=== PATIENT | female | born 1975 | race Two or more races ===

== ENCOUNTER 2017-07-20 17:14 | Inpatient (IN) | payer OTHER ==
[~2017-07-20] VITALS: Ht 165.1 cm; Wt 83.9 kg
--- NOTE | 2017-07-20 19:10 | NUR ---
Dr Montes at the bedside for MSE.
[2017-07-20] MEDS ORDERED: BENZONATATE 100 MG CAPSULE PO ONE (19:30)
[2017-07-20] MEDS ORDERED: ALBUTEROL SULFATE 2.5 MG/3 ML NEBU NEB ONE ×3 (19:30→22:45)
[2017-07-20] MEDS ORDERED: HYDROCODONE BIT/HOMATROPINE 5 ML UDC PO ONE (19:30)
--- NOTE | 2017-07-20 19:30 | NUR ---
rec'd pt in room in no distress, pt aaox4,c/o cough and congestion for 3 days, denies any cp.pt breathing unlabored, with inpirational wheezes in all lobes.abd soft nion distended with + bs, lbm today, wnl per pt. denies any urinary symptoms,bed in lowest position, locked. hob up, sr up x2 for safety, cb within reach will continue with poc
--- NOTE | 2017-07-20 19:38 | NUR ---
RT AT BEDSIDE GIVING BREATHING TX
[2017-07-20] MEDS ORDERED: HYDROCODONE BIT/HOMATROPINE 5 ML UDC ONE (19:49)
[2017-07-20] MEDS ORDERED: BENZONATATE 100 MG CAPSULE ONE (19:49)
[2017-07-20] MEDS ORDERED: ALBUTEROL SULFATE 2.5 MG/3 ML NEBU ONE ×3 (19:55→23:04)
--- NOTE | 2017-07-20 20:15 | NUR ---
RT AT BEDSIDE. PT GETTING 2ND ROUND OF BREATHING TX.
--- NOTE | 2017-07-20 20:54 | NUR ---
CT AT BEDSIDE
--- NOTE | 2017-07-20 21:02 | NUR ---
WEEZING AND RHONCHI STILL AUSCULTATED BILATERALLY; HOWEVER, PT REPORTS "FEELING BETTER."
[2017-07-20] MEDS ORDERED: IPRATROPIUM BROMIDE 0.5 MG/2.5 ML NEBU NEB ONE (22:45)
[2017-07-20 22:52] LABS: BASOPHILS % (AUTO) 1.1 % (0.0-2.0); EOSINOPHILS # (AUTO) 0.2 K/uL (0.0-0.7); EOSINOPHILS % (AUTO) 3.6 % (0.0-7.0); HEMOGLOBIN 12.1 g/dL (10.9-14.3); LYMPHOCYTES # (AUTO) 1.6 K/uL (20.0-40.0); LYMPHOCYTES % (AUTO) 35.6 % (20.5-51.5); MEAN CORPUSCULAR HEMOGLOBIN 28.7 uug (24.7-32.8); MEAN CORPUSCULAR HGB CONC 34 g/dL (32.3-35.6); MEAN CORPUSCULAR VOLUME 85.1 fL (75.5-95.3); MONOCYTES # (AUTO) 0.6 K/uL (2.0-10.0); MONOCYTES % (AUTO) 12.7 % (0.0-11.0); NEUTROPHILS # (AUTO) 2.1 K/uL (1.8-8.9); PLATELET COUNT (AUTO) 247 K/uL (179-408); RED BLOOD CELL COUNT(AUTO) 4.23 MIL/uL (3.63-4.92); WHITE BLOOD COUNT (AUTO) 4.4 K/uL (3.8-11.8)
--- NOTE | 2017-07-20 22:59 | NUR ---
PT RECEIVING 3RD ROUND OF BREATHING TX.
[2017-07-20] MEDS ORDERED: IPRATROPIUM BROMIDE 0.5 MG/2.5 ML NEBU ONE (23:04)
[2017-07-20 23:08] LABS: BILIRUBIN,TOTAL 0.2 mg/dL (0.2-1.0); CREATININE 0.8 mg/dL (0.6-1.3); POTASSIUM 3.2 mmol/L (3.5-5.1)
--- NOTE | 2017-07-20 23:15 | NUR ---
PT IN BED RECEIVING BREATHING TX. PT'S BROTHER AT BEDSIDE.
[2017-07-20] MEDS ORDERED: POTASSIUM BICARBONATE/CIT AC 25 MEQ TABLET.EFF PO ONE (23:30)
--- NOTE | 2017-07-20 23:30 | NUR ---
PT IN BED. MD MARINO REASSESSING PT'S BREATHING POST TX
[2017-07-20] MEDS ORDERED: AZITHROMYCIN IV 500 MG in IV DEXTROSE 5% 250 ML IV ONE (23:45)
[2017-07-20] MEDS ORDERED: POTASSIUM BICARBONATE/CIT AC 25 MEQ TABLET.EFF ONE (23:55)
[2017-07-21] MEDS ORDERED: AZITHROMYCIN 500 MG VIAL IV ONE (00:08)
--- NOTE | 2017-07-21 00:34 | NUR ---
PT IN BED. PT IS SITTING UP AND EATING SUBWAY. PT'S BROTHER IS AT BEDSIDE.
--- NOTE | 2017-07-21 00:43 | NUR ---
panel call placed per [place] JIMENES
[2017-07-21] MEDS ORDERED: HYDROCODONE/APAP 10-325 MG TABLET PO PRN (01:00)
[2017-07-21] MEDS ORDERED: ONDANSETRON 4 MG/2 ML VIAL IV PRN (01:00)
[2017-07-21] MEDS ORDERED: Z GUARD REMEDY PASTE 57 GM TUBE TOP PRN (01:00)
[2017-07-21] MEDS ORDERED: MAGNESIUM HYDROXIDE 30 ML LIQUID UDC PO PRN (01:00)
[2017-07-21] MEDS ORDERED: ACETAMINOPHEN 325 MG TABLET PO PRN (01:00)
--- NOTE | 2017-07-21 01:05 | NUR ---
GAVE REPORT TO RADHIKA MILLER IN TELEMETRY
--- NOTE | 2017-07-21 01:55 | NUR ---
NEW ADMIT FROM ER, PATIENT IS ALERT AND ORIENTED AND ABLE TO STATE HER NEEDS. C/O OF H/A PRN PAIN MEDS GIVEN ORDERED. NO RESP DISTRESS AT PRESENT, WHEEZES HEARD ON AUSCULTATION, BREATHING TX ADMIN BY RT WITH EFFECT. WILL CONTINUE TO MONITOR PATIENT
[2017-07-21 02:02] VITALS: BP 122/74
[2017-07-21] MEDS: HYDROCODONE/APAP 5-325MG TABLET PO PRN ×2 (02:31→20:30)
[2017-07-21] MEDS ORDERED: ALBUTEROL SULFATE 2.5 MG/ 0.5 ML NEBU ONE (03:33)
[2017-07-21] MEDS ORDERED: IPRATROPIUM BROMIDE 0.5 MG/2.5 ML NEBU ONE (03:34)
[2017-07-21 04:00] VITALS: BP 127/70
[2017-07-21] MEDS ORDERED: ALBUTEROL SULFATE 2.5 MG/ 0.5 ML NEBU NEB SCH (06:00)
[2017-07-21] MEDS ORDERED: IPRATROPIUM BROMIDE 0.5 MG/2.5 ML NEBU NEB SCH (06:00)
--- NOTE | 2017-07-21 06:43 | NUR ---
PATIENT SLEPT WELL THROUGH THE NIGHT, NO SIGNIFICANT CHANGES IN STATUS AT PRESENT. PATIENT IS RESTING COMFORTABLY.
[2017-07-21 10:59] LABS: *URINE HCG, QUAL NEGATIVE (NEGATIVE)
[2017-07-21 12:20] VITALS: BP 122/74
[2017-07-21] MEDS: methylPREDNISolone SOD SUCC 40 MG/ML VIAL IV SCH ×3 (13:18→21:35)
[2017-07-21] MEDS: ALBUTEROL SULFATE 2.5 MG/ 0.5 ML NEBU NEB SCH ×2 (13:44→19:06)
[2017-07-21] MEDS: IPRATROPIUM BROMIDE 0.5 MG/2.5 ML NEBU NEB SCH ×2 (13:45→19:06)
[2017-07-21] MEDS ORDERED: POTASSIUM CHLORIDE 20 MEQ TAB.PRT.SR PO ONE (14:21)
[2017-07-21 16:00] VITALS: BP 115/76
[2017-07-21 20:00] VITALS: BP 126/73
--- NOTE | 2017-07-21 20:30 | NUR ---
RECEIVED IN BED ALERT ORIENTED, NO SOB NO CHEST PAIN NOTED, PATIENT STILL HAS NON PRODUCTIVE COUGH, CONT ON PAIN MANAGEMENT, FAMILY AT BEDSIDE.
--- NOTE | 2017-07-21 22:30 | NUR ---
PATIENT HAS INTENSE COUGH, AND REQUESTING COUGH MEDICATIONS, NOTIFY DR. RAGSDALE WITH NO NEW ORDER, CONT HHN TX. ORDER, CONT TO MONITOR.
[2017-07-21] MEDS ORDERED: AZITHROMYCIN IV 500 MG in IV DEXTROSE 5% 250 ML IV SCH (23:00)
[2017-07-22] MEDS: ALBUTEROL SULFATE 2.5 MG/ 0.5 ML NEBU NEB SCH ×2 (00:39→07:55)
[2017-07-22] MEDS: IPRATROPIUM BROMIDE 0.5 MG/2.5 ML NEBU NEB SCH ×2 (00:39→07:55)
[2017-07-22] MEDS: methylPREDNISolone SOD SUCC 40 MG/ML VIAL IV SCH (05:21)
[2017-07-22 06:26] LABS: BASOPHILS % (AUTO) 0.1 % (0.0-2.0); HEMATOCRIT 37.3 % (31.2-41.9); HEMOGLOBIN 12.2 g/dL (10.9-14.3); LYMPHOCYTES # (AUTO) 1.1 K/uL (20.0-40.0); LYMPHOCYTES % (AUTO) 20.7 % (20.5-51.5); MEAN CORPUSCULAR HEMOGLOBIN 27.8 uug (24.7-32.8); MEAN CORPUSCULAR HGB CONC 33 g/dL (32.3-35.6); MEAN CORPUSCULAR VOLUME 85.2 fL (75.5-95.3); MONOCYTES # (AUTO) 0.3 K/uL (2.0-10.0); MONOCYTES % (AUTO) 6.1 % (0.0-11.0); NEUTROPHILS # (AUTO) 3.8 K/uL (1.8-8.9); NEUTROPHILS % (AUTO) 73.1 % (38.5-71.5); PLATELET COUNT (AUTO) 270 K/uL (179-408); RED BLOOD CELL COUNT(AUTO) 4.38 MIL/uL (3.63-4.92); WHITE BLOOD COUNT (AUTO) 5.1 K/uL (3.8-11.8)
[2017-07-22 06:41] LABS: CREATININE 0.7 mg/dL (0.6-1.3); MAGNESIUM 1.7 mg/dL (1.8-2.4); PHOSPHOROUS 2.8 mg/dL (2.5-4.9); POTASSIUM 4.3 mmol/L (3.5-5.1)
--- NOTE | 2017-07-22 06:51 | NUR ---
PATIENT SLEPT MOST OF THE NIGHT, CONT PAIN MANAGEMENT, STILL WITH NO PRODUCTIVE COUGH, CONT HHN TX BY RT. NO S/S OF DISTRESS. CALL LIGHT WITHIN REACH.
[2017-07-22 06:55] LABS: THYROID STIMULATING HORMONE 0.611 mIU/mL (0.358-3.740)
[2017-07-22] MEDS: MAGNESIUM SULFATE/D5W 100 ML IV SCH ×2 (10:11→11:01)
[2017-07-22 11:18] VITALS: BP 116/74
--- NOTE | 2017-07-22 12:30 | NUR ---
d/c orders received noted and carried out.d/c heplock per md orders.d/c instructions and educations given to the pt.pt said she will follow up with her pcp in one week.pt left the facility via private car in stable condition.
== END 2017-07-22 12:30 | disposition home or self-care (01) | DRG 144 ==
LOC: ER 17:16 → TELE 07-21 01:27 → MED 07-21 11:47
PROVIDERS: ADMIT Nurse Practitioner Acute Care; ATTEND Internal Medicine
DX: J20.9 Acute bronchitis, unspecified (principal); E87.6 Hypokalemia; J45.909 Unspecified asthma, uncomplicated; I51.7 Cardiomegaly
CPT/HCPCS: 36415; 71045; 83735; 84100; 84443; 84703; 85025; 94640; 94664; A4663; J0456; J2920; J3475; J3490; J3590; J7030; J7060

== ENCOUNTER 2017-12-16 12:49 | Emergency (ER) | payer OTHER ==
[~2017-12-16] VITALS: Ht 160 cm; Wt 81.2 kg
--- NOTE | 2017-12-16 13:17 | NUR ---
PT WAS EVALUATED BY DR MARTIN. PT WAS D/C TO HOME. D/C INSTRUCTIONS GIVEN TO THE PT.
[2017-12-16 13:21] VITALS: BP 132/79
== END 2017-12-16 13:36 | disposition home or self-care (01) ==
LOC: ER 12:51
DX: J06.9 Acute upper respiratory infection, unspecified (principal); J45.909 Unspecified asthma, uncomplicated
CPT/HCPCS: A4663

== ENCOUNTER 2018-02-03 13:07 | Emergency (ER) | payer OTHER ==
[~2018-02-03] VITALS: Ht 165.1 cm; Wt 72.6 kg
--- NOTE | 2018-02-03 13:40 | NUR ---
MSE COMPLETED, PT D/C'D HIOME, ACI/RX X2 GIVEN. PT AMBULATED W/O DIFF/TOOK ALL BELONGINGS.
[2018-02-03 13:57] VITALS: BP 111/77
== END 2018-02-03 13:40 | disposition home or self-care (01) ==
LOC: ER 13:07
DX: J02.0 Streptococcal pharyngitis (principal); J45.909 Unspecified asthma, uncomplicated
CPT/HCPCS: A4663

== ENCOUNTER 2019-05-22 12:10 | Emergency (ER) | payer OTHER ==
[~2019-05-22] VITALS: Ht 170.2 cm; Wt 81.6 kg
[2019-05-22] MEDS ORDERED: IBUPROFEN 600 MG TABLET PO ONE (12:30)
[2019-05-22] MEDS ORDERED: IBUPROFEN 600 MG TABLET ONE (12:32)
== END 2019-05-22 12:34 | disposition home or self-care (01) ==
LOC: ER 12:14
DX: J11.1 Influenza due to unidentified influenza virus with other respiratory manifestations (principal); J45.909 Unspecified asthma, uncomplicated
CPT/HCPCS: A4663

== ENCOUNTER 2019-07-06 00:42 | Emergency (ER) | payer OTHER ==
[~2019-07-06] VITALS: Ht 165.1 cm; Wt 86.2 kg
[2019-07-06] MEDS ORDERED: ALBUTEROL SULFATE 2.5 MG/3 ML NEBU NEB ONE (01:00)
[2019-07-06] MEDS ORDERED: IPRATROPIUM BROMIDE 0.5 MG/2.5 ML NEBU NEB ONE (01:00)
[2019-07-06] MEDS ORDERED: predniSONE 20 MG TABLET PO ONE (01:00)
[2019-07-06] MEDS ORDERED: predniSONE 10 MG TABLET ONE (01:02)
[2019-07-06] MEDS ORDERED: predniSONE 50 MG TABLET ONE (01:03)
[2019-07-06] MEDS ORDERED: ALBUTEROL SULFATE 2.5 MG/ 0.5 ML NEBU ONE (01:05)
[2019-07-06] MEDS ORDERED: IPRATROPIUM BROMIDE 0.5 MG/2.5 ML NEBU ONE (01:05)
--- NOTE | 2019-07-06 01:32 | NUR ---
pt able to tolerate breathing treatment states significant relief denies pain o2sat at 97% HR at 95
--- NOTE | 2019-07-06 01:33 | NUR ---
Patient discharged to home in stable conditon. Written and verbal after care instructions given. Patient verbalizes understanding of instructions. ambulatory w/ stable gait all belongings w/ pt
[2019-07-06 01:34] VITALS: BP 108/89
== END 2019-07-06 01:34 | disposition home or self-care (01) ==
LOC: ER 00:45
DX: J45.909 Unspecified asthma, uncomplicated (principal)
CPT/HCPCS: 94640; 99283; J7512 ×2; A4663; J3590

== ENCOUNTER 2020-06-28 14:49 | Emergency (ER) | payer OTHER ==
[~2020-06-28] VITALS: Ht 170.2 cm; Wt 85.7 kg
[2020-06-28] MEDS ORDERED: DEXAMETHASONE 4 MG TABLET PO ONE (15:30)
[2020-06-28] MEDS ORDERED: IPRATROPIUM BROMIDE 0.5 MG/2.5 ML NEBU NEB ONE (15:30)
[2020-06-28] MEDS ORDERED: ALBUTEROL SULFATE 2.5 MG/3 ML NEBU NEB ONE (15:30)
[2020-06-28] MEDS ORDERED: DEXAMETHASONE 4 MG TABLET ONE (15:40)
[2020-06-28] MEDS ORDERED: IPRATROPIUM BROMIDE 0.5 MG/2.5 ML NEBU ONE (15:58)
[2020-06-28] MEDS ORDERED: ALBUTEROL SULFATE 2.5 MG/3 ML NEBU ONE (15:58)
[2020-06-28] MEDS ORDERED: ALBU8.5H8 INH (16:05)
[2020-06-28] MEDS ORDERED: METH4TAB3 PO (16:05)
--- NOTE | 2020-06-28 16:45 | NUR ---
Patient discharged to home in stable condition. Written and verbal after care instructions given. Patient verbalizes understanding of instructions. Stressed follow up or return to ER for worsening s/s.pt says feels better, breathing normally, no sob.
[2020-06-28 16:46] VITALS: BP 119/51
== END 2020-06-28 16:47 | disposition home or self-care (01) ==
LOC: ER 14:49
DX: J45.909 Unspecified asthma, uncomplicated (principal); Z20.822 Contact with and (suspected) exposure to COVID-19
CPT/HCPCS: 71045; 87426; 94640; 99284; J8540; A4663; J3590

== ENCOUNTER 2020-08-10 22:59 | Emergency (ER) | payer OTHER ==
[~2020-08-10] VITALS: Ht 170.2 cm; Wt 81.6 kg
[~2020-08-10 22:59] MED LIST: ALBU8.5H8 INH; METH4TAB3 PO
[2020-08-10] MEDS ORDERED: methylPREDNISolone SOD SUCC 125 MG/2 ML VIAL IV ONE (23:15)
[2020-08-10] MEDS ORDERED: IPRATROPIUM BROMIDE 0.5 MG/2.5 ML NEBU NEB ONE (23:15)
[2020-08-10] MEDS ORDERED: IV NORMAL SALINE 1000 ML BAG IV ONE (23:15)
[2020-08-10] MEDS ORDERED: TERBUTALINE SULFATE 1 MG/1 ML VIAL SQ ONE (23:15)
[2020-08-10] MEDS ORDERED: ALBUTEROL SULFATE 2.5 MG/3 ML NEBU NEB ONE (23:15)
[2020-08-10] MEDS ORDERED: MAGNESIUM SULFATE 2 GM in IV DEXTROSE 5% 100 ML IV ONE (23:15)
[2020-08-10] MEDS ORDERED: ALBUTEROL SULFATE 2.5 MG/ 0.5 ML NEBU ONE (23:23)
[2020-08-10] MEDS ORDERED: IPRATROPIUM BROMIDE 0.5 MG/2.5 ML NEBU ONE (23:23)
[2020-08-10] MEDS ORDERED: TERBUTALINE SULFATE 1 MG/1 ML VIAL ONE (23:50)
[2020-08-10] MEDS ORDERED: methylPREDNISolone SOD SUCC 125 MG/2 ML VIAL ONE (23:50)
[2020-08-10] MEDS ORDERED: MAGNESIUM SULFATE/D5W 200 ML ONE (23:51)
--- NOTE | 2020-08-11 00:06 | NUR ---
Patient ambulatory to rm3,complaint short of breath this evening not resolving speech in clear short sentences,dry cough,moist membranes HOB up, Patient decline gown.RFA # 22 angio NS IVF as directed.
[2020-08-11] MEDS ORDERED: PRED50TA PO (00:11)
[2020-08-11] MEDS ORDERED: ALBU8.5H8 INH (00:11)
[2020-08-11 01:30] VITALS: BP 122/70
== END 2020-08-11 01:31 | disposition home or self-care (01) ==
LOC: ER 23:01
DX: J45.901 Unspecified asthma with (acute) exacerbation (principal)
CPT/HCPCS: 71045; 93005; 94640; 96365; 96366; 96372; 96375; 99285; J2930; J3105; J3475; J3590

== ENCOUNTER 2020-10-05 16:46 | Emergency (ER) | payer OTHER ==
[~2020-10-05] VITALS: Ht 170.2 cm; Wt 81.6 kg
[~2020-10-05 16:46] MED LIST changes: +PRED50TA PO
[2020-10-05] MEDS ORDERED: AZIT250T PO (17:10)
[2020-10-05] MEDS ORDERED: ACETAMINOPHEN 325 MG TABLET PO ONE (17:15)
[2020-10-05] MEDS ORDERED: AZITHROMYCIN 250 MG TABLET PO ONE (17:15)
[2020-10-05] MEDS ORDERED: AZITHROMYCIN 250 MG TABLET ONE (17:20)
[2020-10-05] MEDS ORDERED: ACETAMINOPHEN ES 500 MG TABLET ONE (17:20)
--- NOTE | 2020-10-05 17:26 | NUR ---
Gave pt RX and d/c instructions, pt verbalized understanding.
[2020-10-06] MEDS ORDERED: ACET-2154 PO (03:30)
== END 2020-10-05 17:27 | disposition home or self-care (01) ==
LOC: ER 16:48
DX: J02.9 Acute pharyngitis, unspecified (principal); J45.909 Unspecified asthma, uncomplicated
CPT/HCPCS: A4663; A9150; Q0144

== ENCOUNTER 2020-10-06 02:18 | Emergency (ER) | payer OTHER ==
[~2020-10-06] VITALS: Ht 170.2 cm; Wt 81.6 kg
[~2020-10-06 02:18] MED LIST changes: +AZIT250T PO
[2020-10-06] MEDS ORDERED: KETOROLAC TROMETHAMINE 30 MG INJ ONE (02:59)
[2020-10-06] MEDS ORDERED: ACETAMINOPHEN 325 MG TABLET ONE ×2 (02:59→03:00)
[2020-10-06] MEDS ORDERED: ACETAMINOPHEN 325 MG TABLET PO ONE (03:00)
[2020-10-06] MEDS ORDERED: KETOROLAC TROMETHAMINE 30 MG INJ IM ONE (03:00)
[2020-10-06] MEDS ORDERED: ACET-2154 PO (03:30)
[2020-10-06] MEDS ORDERED: ONDANSETRON ODT 4 MG TAB.RAPDIS SL ONE (03:45)
--- NOTE | 2020-10-06 03:51 | NUR ---
Patient discharged to home in stable condition. Written and verbal after care instructions given. Patient verbalizes understanding of instructions. Stressed follow up or return to ER for worsening s/s. Patient out of ER with steady gait, no acute signs of distress, VSS, all belongings taken. Provided with lab results.
[2020-10-06 03:52] VITALS: BP 135/70
[2020-10-06] MEDS ORDERED: ONDANSETRON ODT 4 MG TAB.RAPDIS ONE (03:53)
== END 2020-10-06 03:52 | disposition home or self-care (01) ==
LOC: ER 02:19
DX: J02.0 Streptococcal pharyngitis (principal); B95.0 Streptococcus, group A, as the cause of diseases classified elsewhere; M79.10 Myalgia, unspecified site; Z20.822 Contact with and (suspected) exposure to COVID-19; J45.909 Unspecified asthma, uncomplicated
CPT/HCPCS: 86403; 87426; 96372; 99283; J1885; A4663; Q0162

== ENCOUNTER 2020-12-05 10:22 | Emergency (ER) | payer OTHER ==
[~2020-12-05] VITALS: Ht 170.2 cm; Wt 81.6 kg
[~2020-12-05 10:22] MED LIST changes: +ACET-2154 PO
--- NOTE | 2020-12-05 11:13 | NUR ---
Gave pt d/c instructions, pt verbalized understanding.
== END 2020-12-05 11:15 | disposition home or self-care (01) ==
LOC: ER 10:22
DX: J06.9 Acute upper respiratory infection, unspecified (principal); J45.909 Unspecified asthma, uncomplicated
CPT/HCPCS: 86403; 87070; A4663

== ENCOUNTER 2021-01-31 09:30 | Emergency (ER) | payer OTHER ==
[~2021-01-31] VITALS: Ht 170.2 cm; Wt 90.7 kg
--- NOTE | 2021-01-31 09:53 | NUR ---
at bedside for assessment
[2021-01-31] MEDS ORDERED: GLUCAGON,HUMAN RECOMBINANT 1 MG VIAL IVP ONE (10:00)
[2021-01-31] MEDS ORDERED: GLUCAGON,HUMAN RECOMBINANT 1 MG VIAL ONE (10:14)
--- NOTE | 2021-01-31 10:23 | NUR ---
Patient taken to radiology department for x-ray of the neck, patient states she swallowed a fish bone and it got caught in her throat
--- NOTE | 2021-01-31 11:20 | NUR ---
Called Dr.Marc Browne's office (ENT) as requested by . Spoke with Rita who stated the patient will need to get authorization from her insurance before they can see her.
--- NOTE | 2021-01-31 11:58 | NUR ---
Patient's medical office contacted to get a a referral for ENT, Medical office informed me that in 72 hours the patient will get a call from one of their nurses to schedule an appointment. Patient offered to be transferred to a hospital with an ENT on staff. Patient opted to drive to [facility] on her own. Patient discharged to home in stable condition. No signs of acute distress noted. Written and verbal after care instructions given. Patient verbalizes understanding of instructions. Stressed follow up or return to ER for worsening s/s.
[2021-01-31 12:08] VITALS: BP 126/86
== END 2021-01-31 12:00 | disposition home or self-care (01) ==
LOC: ER 09:31
DX: T18.108A Unspecified foreign body in esophagus causing other injury, initial encounter (principal); X58.XXXA Exposure to other specified factors, initial encounter; Y92.89 Other specified places as the place of occurrence of the external cause; J45.909 Unspecified asthma, uncomplicated; Z79.899 Other long term (current) drug therapy
CPT/HCPCS: 70360; 96374; 99284; J1610; A4663

== ENCOUNTER 2021-06-21 21:01 | Emergency (ER) | payer OTHER ==
[~2021-06-21] VITALS: Ht 170.2 cm; Wt 86.2 kg
[2021-06-22] MEDS ORDERED: MAG HYDROX/AL HYDROX/SIMETH 30 ML LIQUID UDC PO ONE
[2021-06-22] MEDS ORDERED: ALBUTEROL SULFATE 2.5 MG/3 ML NEBU NEB ONE
[2021-06-22] MEDS ORDERED: predniSONE 20 MG TABLET PO ONE
[2021-06-22] MEDS ORDERED: ALBUTEROL SULFATE 2.5 MG/3 ML NEBU ONE (00:17)
[2021-06-22] MEDS ORDERED: PRED50TA PO (00:20)
[2021-06-22] MEDS ORDERED: GUAI5SYR4 PO (00:20)
[2021-06-22] MEDS ORDERED: FLUT1DIS28 INH (00:20)
[2021-06-22] MEDS ORDERED: ALBU6.7H9 INH (00:20)
--- NOTE | 2021-06-22 00:27 | NUR ---
A/O x3 HOB up complaint dry cough x 4 day. ED MD bedside. Resp TX ordered. Resp Tech bedside for TX. Patient states normal void, BM,.Able to hydrate well, moist membranes, clear speech. Comfort measure x 1.
[2021-06-22] MEDS ORDERED: predniSONE 20 MG TABLET ONE (00:43)
[2021-06-22] MEDS ORDERED: MAGNESIUM HYDROXIDE 30 ML LIQUID UDC ONE (00:56)
--- NOTE | 2021-06-22 01:19 | NUR ---
ED MD with patient states feeling better ready to go home, reviewed written After Visit instructions patient able to verbalize instructions RX given. All questions answered.
[2021-06-22 01:22] VITALS: BP 122/78
== END 2021-06-22 01:00 | disposition home or self-care (01) ==
LOC: ER 21:03
DX: J45.901 Unspecified asthma with (acute) exacerbation (principal)
CPT/HCPCS: 94644; 99285; J7512; A4663

== ENCOUNTER 2021-07-02 23:49 | Emergency (ER) | payer OTHER ==
[~2021-07-02] VITALS: Ht 170.2 cm; Wt 86.2 kg
[~2021-07-02 23:49] MED LIST changes: +ALBU6.7H9 INH; +FLUT1DIS28 INH; +GUAI5SYR4 PO
[2021-07-03] MEDS ORDERED: predniSONE 20 MG TABLET PO ONE (00:15)
[2021-07-03] MEDS ORDERED: MAG HYDROX/AL HYDROX/SIMETH 30 ML LIQUID UDC PO ONE (00:15)
[2021-07-03] MEDS ORDERED: IPRATROPIUM BROMIDE 0.5 MG/2.5 ML NEBU NEB ONE (00:15)
[2021-07-03] MEDS ORDERED: ALBUTEROL SULFATE 2.5 MG/3 ML NEBU NEB ONE (00:15)
[2021-07-03] MEDS ORDERED: MAG HYDROX/AL HYDROX/SIMETH 30 ML LIQUID UDC ONE (00:24)
[2021-07-03] MEDS ORDERED: predniSONE 50 MG TABLET ONE (00:25)
[2021-07-03] MEDS ORDERED: predniSONE 10 MG TABLET ONE (00:25)
[2021-07-03] MEDS ORDERED: IPRATROPIUM BROMIDE 0.5 MG/2.5 ML NEBU ONE (00:28)
[2021-07-03] MEDS ORDERED: ALBUTEROL SULFATE 2.5 MG/ 0.5 ML NEBU ONE (00:28)
[2021-07-03] MEDS ORDERED: predniSONE 20 MG TABLET ONE (00:50)
[2021-07-03] MEDS ORDERED: MAGNESIUM HYDROXIDE 30 ML LIQUID UDC ONE (00:51)
--- NOTE | 2021-07-03 01:25 | NUR ---
PATIENT STATES "I FEEL BETTER AFTER THE BREATHING TX."
[2021-07-03] MEDS ORDERED: PRED20TA PO (01:41)
[2021-07-03] MEDS ORDERED: FLUT1DIS28 INH (01:41)
[2021-07-03] MEDS ORDERED: ALBU6.7H9 INH (01:41)
[2021-07-03 01:49] VITALS: BP 128/88
--- NOTE | 2021-07-03 01:49 | NUR ---
Patient discharged to home in stable condition. Written and verbal after care instructions given. Patient verbalizes understanding of instructions. Stressed follow up or return to ER for worsening s/s.
== END 2021-07-03 01:50 | disposition home or self-care (01) ==
LOC: ER 23:52
DX: J45.901 Unspecified asthma with (acute) exacerbation (principal); E03.9 Hypothyroidism, unspecified; Z79.899 Other long term (current) drug therapy
CPT/HCPCS: 94640; 99291; J7512 ×3; A4663; J3590

== ENCOUNTER 2021-07-11 22:39 | Inpatient (IN) | payer OTHER ==
[~2021-07-11] VITALS: Ht 170.2 cm; Wt 84.8 kg
[~2021-07-11 22:39] MED LIST changes: +PRED20TA PO
--- NOTE | 2021-07-11 22:45 | NUR ---
EDMD at bedside for eval. Ordered to call RT for treatment x2 then reassess before 3rd. PCXR also ordered, pt
--- NOTE | 2021-07-11 22:50 | NUR ---
Pt brought back to room ED2A by welder 2nd shift Farhana accompanied by daughter for translation, pt speaks albanian only. Placed on gurney in pos of comfort connected to monitor and initial vs obtained. VSS, PE wnl, pt otherwise healthy, here for asthma exacerbation. Lungs very tight and guncky, wheezing throughout bilat. SaO2 at 96% RA, 129/86, 89bpm, 96%RA, 22rpm. Pt denies any pain but daughter states that pt had epigastric pain earlier that day. Currently pt has 0/10 pain, Denies any n/v or dizziness, pt does feel slightly SOB but satting well. Pt placed in gown and given a blanket. All needs met, rails up, call light within reach. No s/sx of distress present.
[2021-07-11] MEDS ORDERED: predniSONE 50 MG TABLET PO ONE (23:00)
[2021-07-11] MEDS ORDERED: IPRATROPIUM BROMIDE 0.5 MG/2.5 ML NEBU NEB ONE ×3 (23:00→23:45)
[2021-07-11] MEDS ORDERED: ALBUTEROL SULFATE 2.5 MG/ 0.5 ML NEBU NEB ONE ×2 (23:00→23:33)
[2021-07-11] MEDS ORDERED: predniSONE 50 MG TABLET ONE (23:09)
[2021-07-11] MEDS ORDERED: IPRATROPIUM BROMIDE 0.5 MG/2.5 ML NEBU ONE ×2 (23:11→23:50)
[2021-07-11] MEDS ORDERED: ALBUTEROL SULFATE 2.5 MG/ 0.5 ML NEBU ONE ×2 (23:11→23:50)
[2021-07-11] MEDS ORDERED: ALBUTEROL SULFATE 2.5 MG/ 0.5 ML NEBU NEB STA (23:33)
[2021-07-12] MEDS ORDERED: MAGNESIUM SULFATE/D5W 200 ML ONE (00:14)
[2021-07-12] MEDS: MAGNESIUM SULFATE/D5W 100 ML IV SCH ×2 (00:28→01:45)
--- NOTE | 2021-07-12 00:40 | NUR ---
Call to [facility] panel doctor for admission to hospital.
[2021-07-12 00:42] LABS: HEMATOCRIT 36.7 % (31.2-41.9); MEAN CORPUSCULAR HEMOGLOBIN 29.5 uug (24.7-32.8); MEAN CORPUSCULAR VOLUME 87.2 fL (75.5-95.3); PLATELET COUNT (AUTO) 342 K/uL (179-408)
[2021-07-12 00:55] LABS: CARBON DIOXIDE 25 mmol/L (21-32); CHLORIDE 104 mmol/L (98-107); CREATININE 0.9 mg/dL (0.6-1.3); GLUCOSE 108 mg/dL (74-106); POTASSIUM 3.4 mmol/L (3.5-5.1); UREA NITROGEN, BLOOD 21 mg/dL (7-18)
--- NOTE | 2021-07-12 01:03 | NUR ---
second call to [facility] panel doctor.
--- NOTE | 2021-07-12 01:08 | NUR ---
Dr. Aristeo Daniels called back for admission orders.
--- NOTE | 2021-07-12 01:32 | NUR ---
3rd floor called to give report, Cathryn said that she will call back in a little bit when they are ready to receive the pt. I said I will be expecting their call.
[2021-07-12] MEDS ORDERED: ACETAMINOPHEN 325 MG TABLET PO PRN (02:15)
[2021-07-12] MEDS ORDERED: HYDROCODONE/APAP 5-325MG TABLET PO PRN (02:15)
[2021-07-12] MEDS ORDERED: ONDANSETRON 4 MG/2 ML VIAL IV PRN (02:15)
[2021-07-12] MEDS ORDERED: MAGNESIUM HYDROXIDE 30 ML LIQUID UDC PO PRN (02:15)
[2021-07-12] MEDS ORDERED: REMEDY ESSENTIAL ZINC PASTE 113 GM TP PRN (02:15)
--- NOTE | 2021-07-12 03:33 | NUR ---
Report given to PAUL Jones. Patient for admission to telemetry unit room 301B under Dr Norman.
--- NOTE | 2021-07-12 04:00 | NUR ---
Patient came to floor via gurney. Alert and oriented x3. On room air saturating 97%. Some SOB while walking, no chest pain. On sinus rhythm on tele monitor. Temp 98 F, Hr 86, RR 18, BP 119/80. IV on Right AC patent and intact. No signs of pain or distress. Will continue to monitor.
--- NOTE | 2021-07-12 04:00 | NUR ---
Pt. admitted to telemetry unit, room 301B, under care of Dr. Norman. Belongs List completed
[2021-07-12 04:47] VITALS: BP 119/80
[2021-07-12] MEDS: methylPREDNISolone SOD SUCC 125 MG/2 ML VIAL IV SCH ×3 (05:05→18:07)
[2021-07-12] MEDS: PANTOPRAZOLE SODIUM 40 MG TABLET.DR PO SCH (06:03)
--- NOTE | 2021-07-12 06:16 | NUR ---
Patient slept soundly through the rest of the shift. No complaints of SOB. Sinus rhythm on tele monitor. No signs of pain or distress. All needed anticipated and attended to. Bed in the lowest position and call light within reach.
[2021-07-12] MEDS ORDERED: POTASSIUM CHLORIDE 20 MEQ TAB.PRT.SR PO ONE (10:00)
[2021-07-12 11:49] VITALS: BP_SYST 113; BP_SYST 118; BP_DIAS 49; BP_DIAS 78
[2021-07-12] MEDS: levoFLOXacin 500 MG/D5W 500 MG in PREMIXED 1 EACH IV SCH (14:31)
[2021-07-12 15:51] VITALS: BP 122/77
--- NOTE | 2021-07-12 16:46 | NUR ---
Patient in bed, alert and oriented x 4, able to speak a little bit of Guamanian, calm and cooeprative upon assessment. Right AC IV site patent, all due meds given per MD order. All needs met promptly. Placed call light within reach. Patient in room air saturating at 95%. Patient denies of any pain.
--- NOTE | 2021-07-12 19:00 | NUR ---
recd pt in bed,resting quietly, in no acute distress..alert/oriented x4, oxygen inhalation at 2 l/abigail. via nc.saturation 96%.on tele sinus r/sinus t 99-107.
[2021-07-12 20:00] VITALS: BP 123/78
[2021-07-12] MEDS: GUAIFENESIN/DEXTROMETHORPHAN 5 ML UDC PO PRN (21:32)
--- NOTE | 2021-07-13 | NUR ---
in apparently fair conditioup to br, with no problem, voided freely well.n, needs attended to.
[2021-07-13 00:03] VITALS: BP 126/77
[2021-07-13] MEDS: methylPREDNISolone SOD SUCC 125 MG/2 ML VIAL IV SCH ×4 (00:06→17:07)
[2021-07-13 04:01] VITALS: BP 126/70
[2021-07-13 05:34] LABS: HEMATOCRIT 36.1 % (31.2-41.9); MEAN CORPUSCULAR HEMOGLOBIN 28.9 uug (24.7-32.8); MEAN CORPUSCULAR VOLUME 87.5 fL (75.5-95.3); PLATELET COUNT (AUTO) 352 K/uL (179-408)
[2021-07-13 05:38] LABS: CREATININE 0.8 mg/dL (0.6-1.3); MAGNESIUM 2.2 mg/dL (1.8-2.4); PHOSPHOROUS 3.1 mg/dL (2.5-4.9); POTASSIUM 4.2 mmol/L (3.5-5.1)
[2021-07-13] MEDS: PANTOPRAZOLE SODIUM 40 MG TABLET.DR PO SCH (06:21)
--- NOTE | 2021-07-13 07:00 | NUR ---
Patient in bed, alert and oriented x 4, able to speak a little bit of Surinamese, calm and cooeprative upon assessment. Right AC IV site patent. Placed call light within reach. Patient in room air Patient denies of any pain.
--- NOTE | 2021-07-13 07:36 | NUR ---
ENDORSED TO AM NURSE ,IN APPARENTLY FAIR CONDITION. COUGH MED EFFECTIVE. SLEPT WELL.
[2021-07-13 08:22] VITALS: BP 128/78
[2021-07-13] MEDS: GUAIFENESIN/DEXTROMETHORPHAN 5 ML UDC PO PRN ×2 (09:08→21:00)
[2021-07-13 12:37] VITALS: BP 112/76
[2021-07-13] MEDS: levoFLOXacin 500 MG/D5W 500 MG in PREMIXED 1 EACH IV SCH (13:51)
--- NOTE | 2021-07-13 14:06 | NUR ---
pt heart rate went up to 170 upon checking pt was coughing and her vs are bp 144/90 and resp 22 temp 98 pt is asymptomatic made aware
[2021-07-13 16:22] VITALS: BP 126/83
[2021-07-13] MEDS: ALBUTEROL SULFATE 2.5 MG/3 ML NEBU NEB PRN (16:22)
[2021-07-13] MEDS: IPRATROPIUM BROMIDE 0.5 MG/2.5 ML NEBU NEB PRN (16:22)
--- NOTE | 2021-07-13 19:33 | NUR ---
Patient received walking in room, using bathroom. Gait is steady. AAO x4. Able to make needs known, denies any pain. Note with SOB at ambulation and complains of coughing. On RA at this time. SBA provided back to bed, Call light within reach.
[2021-07-13 20:36] VITALS: BP 144/75
[2021-07-14] MEDS: methylPREDNISolone SOD SUCC 125 MG/2 ML VIAL IV SCH ×4 (00:21→17:06)
[2021-07-14 00:43] VITALS: BP 125/79
[2021-07-14 04:44] VITALS: BP 131/74
[2021-07-14] MEDS: GUAIFENESIN/DEXTROMETHORPHAN 5 ML UDC PO PRN ×3 (05:39→20:18)
--- NOTE | 2021-07-14 06:36 | NUR ---
Patient slept well. Still noted with dry cough, no SOB at rest. Denies any other discomforts. No significant events, PRN cough medicine provided as needed. Addendum: 07/14/21 at 0641 by TIMOTHY LUCAS RN Telemetry NSR, in the 90's this shift.
[2021-07-14] MEDS: PANTOPRAZOLE SODIUM 40 MG TABLET.DR PO SCH (06:41)
[2021-07-14 06:53] LABS: HEMATOCRIT 37.8 % (31.2-41.9); MEAN CORPUSCULAR HEMOGLOBIN 28.6 uug (24.7-32.8); MEAN CORPUSCULAR VOLUME 87.7 fL (75.5-95.3); PLATELET COUNT (AUTO) 373 K/uL (179-408)
[2021-07-14 07:10] LABS: CREATININE 0.8 mg/dL (0.6-1.3); MAGNESIUM 2.3 mg/dL (1.8-2.4); PHOSPHOROUS 3.3 mg/dL (2.5-4.9)
--- NOTE | 2021-07-14 07:40 | NUR ---
Received arousable to stimuli. Denies pain or sob. Comfortable on room air. Appears comfortable. No complaints at this time. Kept comfortable. Call light in reach.
--- NOTE | 2021-07-14 11:20 | NUR ---
Dr. alicea roundmarco updated on patient's condition. no new orders received.
[2021-07-14] MEDS: ALBUTEROL SULFATE 2.5 MG/3 ML NEBU NEB PRN (11:57)
[2021-07-14] MEDS: IPRATROPIUM BROMIDE 0.5 MG/2.5 ML NEBU NEB PRN (11:57)
[2021-07-14 12:00] VITALS: BP 126/72
--- NOTE | 2021-07-14 12:12 | NUR ---
pt noted with wheezing, sob on exertion. breathing treatment given by Rt. O2 sat noted 90-91% after treatment. put on 2 lpm nc O2 sat 94%. no change in loc. will cont to monitor.
[2021-07-14] MEDS: levoFLOXacin 500 MG/D5W 500 MG in PREMIXED 1 EACH IV SCH (13:35)
[2021-07-14 16:00] VITALS: BP 132/82
--- NOTE | 2021-07-14 19:47 | NUR ---
Patient in bed with HOB at semi fowlers. AAO x4, DTR at bedside to translate, patient is farsi speaking. Able to make needs known, c/o chest pain, states its from coughing. Dry cough noted, on 2L 02 via NC, exertional SOB still noted. Safety measures initiated. Call light within reach.
[2021-07-14 20:00] VITALS: BP 121/72
[2021-07-15] MEDS: methylPREDNISolone SOD SUCC 125 MG/2 ML VIAL IV SCH ×3 (00:13→12:27)
[2021-07-15 04:00] VITALS: BP 125/82
[2021-07-15] MEDS: GUAIFENESIN/DEXTROMETHORPHAN 5 ML UDC PO PRN ×3 (05:46→16:24)
[2021-07-15] MEDS: PANTOPRAZOLE SODIUM 40 MG TABLET.DR PO SCH (06:11)
[2021-07-15 06:28] LABS: HEMATOCRIT 37.9 % (31.2-41.9); MEAN CORPUSCULAR HEMOGLOBIN 28.7 uug (24.7-32.8); MEAN CORPUSCULAR VOLUME 87.8 fL (75.5-95.3); PLATELET COUNT (AUTO) 364 K/uL (179-408)
--- NOTE | 2021-07-15 06:34 | NUR ---
Patient slept well, no SOB noted. On 2L 02 via NC, 02 sats 92-94% this shift. Still noted with dry cough. No Audible wheezing. Guaifenesin provided as needed. Call light within reach./
[2021-07-15 07:17] LABS: CREATININE 0.7 mg/dL (0.6-1.3); MAGNESIUM 2.5 mg/dL (1.8-2.4); PHOSPHOROUS 3.8 mg/dL (2.5-4.9); POTASSIUM 3.9 mmol/L (3.5-5.1)
--- NOTE | 2021-07-15 08:00 | NUR ---
RECEIVED IN BED AROUSABLE. NO SOB NOTED. PLEASANT MOOD. WANTS TO TRY OFF OXYGEN TODAY BEC SHE WANTS TO GO HOME. DENIES PAIN. NO INFILTRATION NOTED ON IV SITE. KEPT COMFORTABLE. CALL LIGHT AND PERSONAL BELONGINGS IN REACH.
[2021-07-15] MEDS: IPRATROPIUM BROMIDE 0.5 MG/2.5 ML NEBU NEB PRN (10:42)
[2021-07-15] MEDS: ALBUTEROL SULFATE 2.5 MG/3 ML NEBU NEB PRN (10:42)
--- NOTE | 2021-07-15 11:30 | NUR ---
patO2 sat 92% on room air but pt refusing oxygen via nasal cannula at this time. denies sob or chest pain. intermittent dry cough relieved by medication. no change in mentation. cont to monitor.
[2021-07-15 12:00] VITALS: BP 117/75
[2021-07-15] MEDS ORDERED: GUAI5SYR4 PO (12:46)
[2021-07-15] MEDS ORDERED: METH4TAB3 PO (12:46)
[2021-07-15] MEDS ORDERED: AZIT250T PO (12:46)
[2021-07-15] MEDS ORDERED: ALBU8.5H8 INH (12:46)
[2021-07-15] MEDS: levoFLOXacin 500 MG/D5W 500 MG in PREMIXED 1 EACH IV SCH (14:11)
[2021-07-15 16:00] VITALS: BP 115/66
--- NOTE | 2021-07-15 16:30 | NUR ---
ALERT AND ORIENTED X4. NO RESP DISTRESS DENIES SOB/PAIN. FOR DISCHARGE TO HOME. SAID SHE SPOKE WITH DR. LUNA. INSTRUCTIONS RELAYED TO PATIENT AND HER DTR SHANIQUA AT BEDSIDE AND BOTH VERBALIZED UNDERSTANDING. REMOVED IV LINE NO BLEEDING NOTED. LEFT AMBULATORY PICKED UP BY WILLIAM MCGOVERN IN STABLE CONDITION.
== END 2021-07-15 16:30 | disposition home or self-care (01) | DRG 141 ==
LOC: ER 22:42 → DOU3 07-12 03:36 → TELE3 07-12 04:00 → MEDSURG3 07-14 10:55
PROVIDERS: ADMIT Student in an Organized Health Care Education/Training Program; ATTEND Internal Medicine
DX: J45.901 Unspecified asthma with (acute) exacerbation (principal); E03.9 Hypothyroidism, unspecified; E86.0 Dehydration; E87.6 Hypokalemia; Z20.822 Contact with and (suspected) exposure to COVID-19; Z79.51 Long term (current) use of inhaled steroids; Z82.5 Family history of asthma and other chronic lower respiratory diseases; E66.9 Obesity, unspecified; Z68.29 Body mass index [BMI] 29.0-29.9, adult; J20.9 Acute bronchitis, unspecified
CPT/HCPCS: 36415; 71045; 83735; 84100; 85025; 94640; A4663; G0378; J1956; J2930; J3475; J3590; J7040; J7512

== ENCOUNTER 2022-06-03 16:12 | Emergency (ER) | payer OTHER ==
[~2022-06-03] VITALS: Ht 170.2 cm; Wt 84.4 kg
[~2022-06-03 16:12] MED LIST changes: -ACET-2154 PO; -ALBU6.7H9 INH; -PRED20TA PO; -PRED50TA PO
[2022-06-03] MEDS ORDERED: IPRATROPIUM BROMIDE 0.5 MG/2.5 ML NEBU NEB ONE (17:30)
[2022-06-03] MEDS ORDERED: predniSONE 10 MG TABLET PO ONE (17:30)
[2022-06-03] MEDS ORDERED: ALBUTEROL SULFATE 2.5 MG/3 ML NEBU NEB ONE (17:30)
[2022-06-03] MEDS ORDERED: predniSONE 50 MG TABLET ONE (17:34)
[2022-06-03] MEDS ORDERED: predniSONE 10 MG TABLET ONE (17:34)
[2022-06-03] MEDS ORDERED: ALBUTEROL SULFATE 2.5 MG/3 ML NEBU ONE (17:36)
[2022-06-03] MEDS ORDERED: IPRATROPIUM BROMIDE 0.5 MG/2.5 ML NEBU ONE (17:36)
[2022-06-03] MEDS ORDERED: ALBU18HF2 INH (18:14)
[2022-06-03] MEDS ORDERED: PRED20TA PO (18:14)
== END 2022-06-03 18:49 | disposition home or self-care (01) ==
LOC: ER 16:12
DX: J45.901 Unspecified asthma with (acute) exacerbation (principal); E03.9 Hypothyroidism, unspecified
CPT/HCPCS: 99283; 94640; J7512 ×2; J3590

== ENCOUNTER 2024-06-15 09:42 | Emergency (ER) | payer OTHER ==
[~2024-06-15] VITALS: Ht 165.1 cm; Wt 81.6 kg
[~2024-06-15 09:42] MED LIST changes: +ALBU18HF2 INH; +PRED20TA PO; +PRED50TA PO
[2024-06-15 11:40] LABS: BASOPHILS # (AUTO) 0.1 K/UL (0.0-0.2); BASOPHILS % (AUTO) 0.7 % (0.0-2.0); EOSINOPHILS # (AUTO) 0.1 K/uL (0.0-0.7); EOSINOPHILS % (AUTO) 1.3 % (0.0-7.0); HEMATOCRIT 33.6 % (31.2-41.9); LYMPHOCYTES # (AUTO) 0.6 K/uL (0.8-4.8); LYMPHOCYTES % (AUTO) 7.8 % (20.5-51.5); MEAN CORPUSCULAR HEMOGLOBIN 27.6 uug (24.7-32.8); MEAN CORPUSCULAR HGB CONC 33 g/dL (32.3-35.6); MEAN CORPUSCULAR VOLUME 84.4 fL (75.5-95.3); MONOCYTES # (AUTO) 0.4 K/uL (0.1-1.30); MONOCYTES % (AUTO) 6.4 % (0.0-11.0); NEUTROPHILS # (AUTO) 5.9 K/uL (1.8-8.9); NEUTROPHILS % (AUTO) 83.8 % (38.5-71.5); PLATELET COUNT (AUTO) 291 K/uL (179-408); RED BLOOD CELL COUNT(AUTO) 3.98 MIL/uL (3.63-4.92); RED CELL DISTRIBUTION WIDTH 15.1 % (12.3-17.7)
[2024-06-15 11:42] VITALS: O2SAT 96
[2024-06-15] MEDS: ALBUTEROL SULFATE 2.5 MG/3 ML NEBU NEB ONE ×2 (11:42→15:04)
[2024-06-15] MEDS: IPRATROPIUM BROMIDE 0.5 MG/2.5 ML NEBU NEB ONE (11:42)
[2024-06-15] MEDS ORDERED: CEFTRIAXONE /D5W 50ML IVPB **ER PYXIS IV ONE (11:44)
[2024-06-15] MEDS ORDERED: methylPREDNISolone SOD SUCC 125 MG/2 ML VIAL ONE (11:44)
[2024-06-15] MEDS ORDERED: ALBUTEROL SULFATE 2.5 MG/3 ML NEBU ONE ×2 (11:45→14:55)
[2024-06-15] MEDS ORDERED: IPRATROPIUM BROMIDE 0.5 MG/2.5 ML NEBU ONE (11:45)
[2024-06-15] MEDS: CEFTRIAXONE 1 G in IV DEXTROSE 5% 50 ML IV ONE (12:01)
[2024-06-15] MEDS: methylPREDNISolone SOD SUCC 125 MG/2 ML VIAL IV ONE (12:01)
[2024-06-15] MEDS: IV NORMAL SALINE 1000 ML BAG IV ONE (12:01)
[2024-06-15 12:03] LABS: DIFFERENTIAL COMMENT 1
[2024-06-15 12:05] LABS: ALANINE AMINOTRANSFERASE 20 U/L (14-59); ALBUMIN 3.8 g/dL (3.4-5.0); ALKALINE PHOSPHATASE 68 U/L (50-136); ASPARTATE AMINOTRANSFERASE 17 U/L (15-37); BILIRUBIN,DIRECT 0.1 mg/dL (0.0-0.2); BILIRUBIN,TOTAL 0.2 mg/dL (0.2-1.0); CALCIUM 8.4 mg/dL (8.5-10.1); CARBON DIOXIDE 22 mmol/L (21-32); CHLORIDE 104 mmol/L (98-107); CREATININE 0.7 mg/dL (0.6-1.3); GLUCOSE 109 mg/dL (74-106); NT-PRO BNP 22 pg/mL (0-125); POTASSIUM 3.9 mmol/L (3.5-5.1); SODIUM SERUM 142 mmol/L (136-145); TOTAL PROTEIN, SERUM 8.6 g/dL (6.4-8.2); UREA NITROGEN, BLOOD 14 mg/dL (7-18)
[2024-06-15 12:45] LABS: *BILIRUBIN,URIN NEGATIVE (NEGATIVE); *CLARITY,URINE CLEAR (CLEAR); *COLOR,URINE YELLOW (YELLOW); *KETONES,URINE NEGATIVE (NEGATIVE); *PROTEIN,URINE NEGATIVE (NEGATIVE); *UROBILINOGEN,URINE 0.2 E.U./dl (NORMAL); LEUKOCYTE ESTERASE ,URINE NEGATIVE (NEGATIVE); NITRITE, URINE NEGATIVE (NEGATIVE); PH,URINE 6.5 (5.0-8.0); UGLUCOSE NEGATIVE (NEGATIVE)
[2024-06-15 12:50] VITALS: O2SAT 99
[2024-06-15 12:51] LABS: *URINE HCG, QUAL NEGATIVE (NEGATIVE)
[2024-06-15 13:01] LABS: *BLOOD, URINE TRACE (NEGATIVE)
[2024-06-15] MEDS ORDERED: KETOROLAC TROMETHAMINE 15 MG INJ ONE (14:25)
[2024-06-15] MEDS: KETOROLAC TROMETHAMINE 15 MG INJ IVP ONE (14:28)
[2024-06-15 14:45] VITALS: O2SAT 98
[2024-06-15 15:45] VITALS: O2SAT 99
[2024-06-15] MEDS ORDERED: IBUP-1957 PO (17:29)
[2024-06-15] MEDS ORDERED: PRED50TA PO (17:29)
[2024-06-15] MEDS ORDERED: AZIT500T4 PO (17:29)
[2024-06-15 17:41] VITALS: BP 117/84; TEMP 98.8; O2SAT 99
== END 2024-06-15 17:42 | disposition home or self-care (01) ==
LOC: ER 09:42
DX: J45.901 Unspecified asthma with (acute) exacerbation (principal); E03.9 Hypothyroidism, unspecified; R94.31 Abnormal electrocardiogram [ECG] [EKG]; Z79.51 Long term (current) use of inhaled steroids; Z79.52 Long term (current) use of systemic steroids
CPT/HCPCS: 99285; 96365; 96375; 71045 ×2; 80076; 80048; 81001; 84703; 83880; 85025; 84145; 85730; 87040 ×2; 84484; 36415; 94644; 94645; 93005; 83605; 87086; J1885; J2919; J0696; J7040 ×2; 94760; A4606; A4663; J3590

== ENCOUNTER 2025-02-07 15:11 | Emergency (ER) | payer SELFPAY ==
[~2025-02-07] VITALS: Ht 152.4 cm; Wt 81.6 kg
[~2025-02-07 15:11] MED LIST changes: +AZIT500T4 PO; +IBUP-1957 PO
[2025-02-07 15:14] VITALS: BP 131/91
[2025-02-07] MEDS ORDERED: NABU-140 PO (18:55)
[2025-02-07 19:03] VITALS: BP 131/91; TEMP 98.1; O2SAT 99
== END 2025-02-07 19:04 | disposition home or self-care (01) ==
LOC: ER 15:11
DX: M72.2 Plantar fascial fibromatosis (principal); J45.909 Unspecified asthma, uncomplicated; Z79.51 Long term (current) use of inhaled steroids; Z79.52 Long term (current) use of systemic steroids; Z86.79 Personal history of other diseases of the circulatory system
CPT/HCPCS: 73630; A4606; A4663